=== PATIENT | male | born 1990 | race Caucasian/White ===

== ENCOUNTER 2019-05-22 00:28 | Emergency (ER) | payer SELFPAY ==
[2019-05-22 00:34] VITALS: BP 157/94
--- NOTE | 2019-05-22 00:43 | ED ---
Medical Screening - HPI Summary HPI Summary: 29-year-old male presents with law enforcement for legal blood draw. He offers no complaints at this time. Denies any chest pain shortness of breath or abdominal pain. - History of Current Complaint Chief Complaint: EDGeneral Stated Complaint: LEGAL DRAW PER POLICE Time Seen by Provider: 05/22/19 00:41 PMH/Surg Hx/FS Hx/Imm Hx Endocrine/Hematology History: Denies: Hx Anticoagulant Therapy Cardiovascular History: Denies: Hx Myocardial Infarction Infectious Disease History: No Infectious Disease History: Denies: Traveled Outside the [place] in Last 30 Days - Family History Known Family History: Positive: Non-Contributory - Social History Alcohol Use: Occasionally Smoking Status (MU): Unknown if Ever Smoked Review of Systems Negative: Fever Negative: Chest Pain Negative: Shortness Of Breath All Other Systems Reviewed And Are Negative: Yes Physical Exam Triage Information Reviewed: Yes Vital Signs On Initial Exam: Initial Vitals Temp Pulse Resp BP Pulse Ox 98.8 F 71 18 157/94 97 05/22/19 00:32 05/22/19 00:32 05/22/19 00:32 05/22/19 00:32 05/22/19 00:32 Vital Signs Reviewed: Yes Appearance: Positive: Well-Appearing Skin: Positive: Warm, Dry Head/Face: Positive: Normal Head/Face Inspection Eyes: Positive: Normal, Conjunctiva Clear ENT: Positive: Pharynx normal Respiratory/Lung Sounds: Positive: Clear to Auscultation, Breath Sounds Present Cardiovascular: Positive: Normal, RRR Musculoskeletal: Positive: Normal Neurological: Positive: Normal Diagnostics - Vital Signs Vital Signs Temp Pulse Resp BP Pulse Ox 05/22/19 00:32 98.8 F 71 18 157/94 97 - Laboratory Lab Statement: Any lab studies that have been ordered have been reviewed, and results considered in the medical decision making process. Course/Dx - Course Course Of Treatment: 29-year-old male presents with law enforcement for legal blood draw. He offers no complaints at this time. On exam has a normal exam. Legal blood draw performed. - Diagnoses Provider Diagnoses: Encounter for medical screening examination Discharge ED - Sign-Out/Discharge Documenting (check all that apply): Patient Departure Patient Received Moderate/Deep Sedation with Procedure: No - Discharge Plan Condition: Good Disposition: HOME Referrals: No Primary Care Phys,NOPCP [Primary Care Provider] - Additional Instructions: return to ED if develop any new or worsening symptoms - Billing Disposition and Condition Condition: GOOD Disposition: Home
== END 2019-05-22 00:58 | disposition home or self-care (01) ==
LOC: ED 00:28
DX: Z00.00 Encounter for general adult medical examination without abnormal findings (principal)
CPT/HCPCS: 99282